=== PATIENT | male | born 1985 | race Caucasian/White ===

== ENCOUNTER 2019-04-18 18:25 | Emergency (ER) | payer OTHER ==
[~2019-04-18] VITALS: Ht 170.2 cm; Wt 61.3 kg
[2019-04-18 18:31] VITALS: BP 124/77
[2019-04-18] MEDS ORDERED: LIDOCAINE-MPF 1%, 5ML ONE (18:47)
[2019-04-18] MEDS ORDERED: NEOSPORIN OINT. PKT 1 PACKET ONE ×2 (18:50)
[2019-04-18] MEDS ORDERED: LIDOCAINE-MPF 1%, 5ML INFIL ONE (19:00)
[2019-04-18] MEDS ORDERED: DIPH,PERTUSS(ACELL),TET VAC/PF 0.5 ML IM-VACC ONE (19:00)
== END 2019-04-18 19:54 | disposition home or self-care (01) ==
LOC: ED 18:55
DX: S01.81XA Laceration without foreign body of other part of head, initial encounter (principal); S01.412A Laceration without foreign body of left cheek and temporomandibular area, initial encounter; S01.111A Laceration without foreign body of right eyelid and periocular area, initial encounter; W20.8XXA Other cause of strike by thrown, projected or falling object, initial encounter; Y93.89 Activity, other specified; Y92.89 Other specified places as the place of occurrence of the external cause; Y92.69 Other specified industrial and construction area as the place of occurrence of the external cause; Y99.8 Other external cause status
CPT/HCPCS: 12052; 12053; 13131; 90471; 90715; 99285

== ENCOUNTER 2019-04-22 14:34 | Emergency (ER) | payer OTHER ==
[~2019-04-22] VITALS: Ht 170.2 cm; Wt 59.3 kg
[2019-04-22] MEDS ORDERED: CYCLOPENTOLATE 0.5% LEFTEYE ONE (15:00)
[2019-04-22] MEDS ORDERED: CYCLOPENTOLATE OPHTH SOLN 1%, 15ML LEFTEYE ONE (15:00)
--- NOTE | 2019-04-22 15:02 | NUR ---
AT BEDSIDE. DROP ADMINISTERED TO LEFT EYE BY .
--- NOTE | 2019-04-22 15:05 | NUR ---
PT ARRIVED TO ROOM 14 AMBULATORY WITH FAMILY. PT HERE WITH C/O OF BLURRED VISION AFTER INJURY AT WORK. PT AAO X 4, VSS, DRESSED IN GOWN AND ATTACHED TO MONITOR. CALL LIGHT WITHIN REACH, SIDERAIL X [address], PLAN FOR CT SCAN TO RULE OUT FRACTURES.
--- NOTE | 2019-04-22 15:39 | NUR ---
CT CALLED BY THIS RN TO INQUIRE ABOUT DELAY, PER CT, PT NEXT ON LIST.
[2019-04-22 16:07] VITALS: BP 100/68
--- NOTE | 2019-04-22 16:14 | NUR ---
PT TO CT.
--- NOTE | 2019-04-22 16:31 | NUR ---
PT BACK FROM CT.
--- NOTE | 2019-04-22 16:38 | NUR ---
ALL RESULTS BACK AT THIS TIME, CHART UP FOR RECHECK BY MD. LANTIGUA TO BEDSIDE TO DISCUSS POC WITH PT.
--- NOTE | 2019-04-22 16:51 | NUR ---
Patient/Caregiver given discharge instructions and they have confirmed that they understand the instructions. Patient ambulatory with steady gait.
== END 2019-04-22 16:53 | disposition home or self-care (01) ==
LOC: ED 15:10
DX: H20.00 Unspecified acute and subacute iridocyclitis (principal); F17.200 Nicotine dependence, unspecified, uncomplicated; Z90.89 Acquired absence of other organs
CPT/HCPCS: 70450; 70486; 99284